=== PATIENT | female | born 1975 | race African-American/Black ===

== ENCOUNTER 2016-11-24 15:24 | Emergency (ER) | payer OTHER | END 2016-11-24 16:00 | disposition home or self-care (01) | LOC: ER 15:24 | DX: H00.011 Hordeolum externum right upper eyelid (principal); F17.200 Nicotine dependence, unspecified, uncomplicated; Z88.0 Allergy status to penicillin; Z88.1 Allergy status to other antibiotic agents; Z88.8 Allergy status to other drugs, medicaments and biological substances | CPT/HCPCS: 99283 ==